=== PATIENT | male | born 1955 | race Caucasian/White ===

== ENCOUNTER → 2018-11-28 | Outpatient (CLI) | payer BC ==
[~2018-11-28] MED LIST: AMLO10TA5 PO; ASPI81TA85 PO; COQ-100C5 PO; LOSA100T50 PO; MECL-86 PO; METO50TA7 PO; MM S100C PO; MULT1TAB8 PO; PANT40TA3 PO
--- NOTE | 2018-11-30 08:31 | RADONC ---
RADIATION ONCOLOGY CONSULTATION NOTE DATE: 11/28/2018 CHART NUMBER: [id number] DIAGNOSIS: Spindle cell sarcoma. STAGE: IIIB, T2,N0, M0, grade 3. ECOG PERFORMANCE STATUS: 0 CONSULTATION NOTE: Mr. 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 He is now presenting to us having already been seen by radiation oncology at [facility] for further discussion of possible postoperative radiation therapy. HISTORY OF PRESENT ILLNESS: The patient was in his usual state of health until July of this year when and he began having some neck and upper back pain. He was seen by his primary care physician, and a CT scan was done which is reported to show a posterior periscapular mass. At this time, I do not have actual images of any of his MRI, CTs, or other studies. We are attempting to get them. Initially, it was thought that this patient had a hematoma, and he was seen by Dr. Lamas on 09/13/2018. An evacuation was undertaken, and pathology was initially read as having a high-grade lesion. It was reviewed that [facility] and thought at that institution to be an intermediate grade lesion. The patient was subsequently referred to Dr. Saleh, where MRIs and CT scans, as well as bone scans were undertaken. The CT scan of the abdomen and pelvis done 11/20/2018 showed no evidence of metastatic disease in the abdomen or pelvis. The bone scan done 10/18/2018 showed no evidence of osteoblastic metastatic disease. An MRI of the thoracic spine done 11/20/2016 did show a 9.5 cm x 5.7 cm x 8.3 cm mass. That was slightly decreased from the previous MRI, which showed an 11 cm x 8 cm x 10 cm mass. The patient was seen by radiation oncology who discussed the NCCN guidelines as well as the role of radiation either intraoperative with brachytherapy versus postoperative versus preoperative. The patient reports to me that he is scheduled to see Dr. Mike Saleh next Sunday in order to schedule surgical excision and that it has been discussed with him that plans would be for either brachytherapy, postoperative radiation therapy, or a combination thereof. PAST MEDICAL HISTORY: The patient's past medical history is positive for hypertension, cardiac problems, and cataracts. ALLERGIES: The patient is ALLERGIC to TYLENOL. SOCIAL HISTORY: The patient quit smoking in the year 1999. He had smoked one pack of cigarettes per day for 30 years. He drinks alcohol socially. FAMILY HISTORY: The patient's family history is positive for a brother with some type of cancer and a sister with colon cancer. REVIEW OF SYSTEMS: The patient's review of systems is positive for some hearing loss, shortness of breath, and some decreased energy. He also has occasional headaches. His review of systems is otherwise noncontributory. He denies nausea, vomiting, fevers, chills, night sweats, diplopia, headaches, anxiety or depression, anorexia, weight loss, visual disturbances, chest pain, urinary or bowel difficulties, bone pain, or neurological problems. PHYSICAL EXAMINATION: The patient is a well-developed, well-nourished white male in no acute distress. HEENT: Exam is normocephalic, atraumatic. Extraocular movements are intact. There is no palpable cervical, supraclavicular, infraclavicular, axillary, or inguinal lymphadenopathy present. His lungs are clear to auscultation and percussion. There is a large mass present over his upper back consistent with his history. It measures approximately 19 cm across. It is nontender but appears to be fixed. His heart has regular rate and rhythm. His abdomen is benign with no splenomegaly. Remainder of his physical exam is within normal limits. ASSESSMENT: Mr. Elkins is presenting to us today with what appears to be either an intermediate grade to high-grade spindle cell sarcoma which is involving his back. He is scheduled to see his surgeon, Dr. Saleh, next Sunday to schedule surgery and is presenting to us to once again discuss the possibilities of possible postoperative radiation therapy. I am attempting to obtain copies of his actual films for further evaluation. I have scheduled the patient see me again in 3 weeks for further followup. That would be [address] Saleh's appointment. I let the patient know that radiation would not begin for several weeks following surgery and that if he is just having surgery at that time to let us know and we could push back that appointment. There will be a necessary healing period. In addition, if the patient is receiving brachytherapy, further adjustments or recommendations will be made. We will also obtain the pathology results and operative notes as well as other information, once surgical resection has been completed. Thank you for allowing us to participate in the care of this very pleasant gentleman. I Look forward to working with you closely in his care. As always, with the warmest regards, John Gonzalez
== END ==
LOC: M ONCR 12:58
PROVIDERS: ATTEND Radiology Radiation Oncology
DX: C49.5 Malignant neoplasm of connective and soft tissue of pelvis (principal)

== ENCOUNTER → 2019-07-01 | Outpatient (CLI) | payer BC ==
[~2019-07-01] MED LIST changes: +DILA2TAB6 PO; +IBUP80TA PO; +LACT10SO29 PO; +VOTR200T2 PO
--- NOTE | 2019-07-03 10:31 | RADONC ---
RADIATION ONCOLOGY CONSULTATION NOTE DATE: 07/01/2019 CHART NUMBER: [id number] DIAGNOSIS: Myxofibrosarcoma. STAGE: IIIB, T2, N0, M0, grade 3, now multiple recurrences. ECOG PERFORMANCE STATUS: 1. CONSULTATION NOTE: Mr. 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 Since that time the patient has been seen by Dr. Alexis Saleh in [place] and has undergone multiple resections of his tumor. His most recent recurrence has been growing and a recent MRI done on June 02, 2019 reveals a 15 cm x 4 cm x 15 cm right posterior chest wall soft tissue mass compatible with his recurrent myxofibrosarcoma. There is a significant surgical defect. The tumor extends basically from the T2 through the T8 vertebral levels. The patient is now being referred to me for discussion of palliative radiation therapy as a therapeutic option. PAST MEDICAL HISTORY: The patient's past medical history is positive for hypertension, cardiac problems and cataracts. ALLERGIES: The patient is allergic to TYLENOL. SOCIAL HISTORY: The patient quit smoking in the year 1999. He had smoked one pack of cigarettes a day for 30 years. He drinks alcohol socially. FAMILY HISTORY: The patient's family history is positive for brother with some type of cancer and a sister with colon cancer. REVIEW OF SYSTEMS: The patient's review of systems is positive for back pain as well as some pain and discomfort running down his right arm. He also notes numbness in some of his fingers in the right arm. His review of systems is also positive for generalized weakness, decreased energy, some hearing loss, shortness of breath and physical limitations. He denies nausea, vomiting, fevers, chills, night sweats, diplopia, headaches, chest pain, bowel difficulties, urine problems. PHYSICAL EXAMINATION: The patient is a somewhat obese white male in no acute distress. HEENT: Exam is normocephalic, atraumatic. Extraocular movements are intact. There is no palpable cervical, supraclavicular, infraclavicular or axillary lymphadenopathy present. Examination of the patient's back reveals a huge surgical defect with necrotic tumor at the base. Photographs have been taken. The area of necrotic tumor measures approximately 15 cm consistent with his MRI. Overall is lungs are clear to auscultation and percussion. His heart has regular rate and rhythm. His abdomen is benign with no splenomegaly, masses or tenderness. ASSESSMENT: I had a very lengthy discussion with this patient. I made clear to him that this is not a curative treatment. Indeed the likelihood of a significant response with the minimal. The best we could hope is slowing down progression of this disease. In light of the fact that the patient is no longer a candidate for any further surgery and indeed refuses surgery then that I am willing to offer him radiation as his only option at this point. Once again I have made clear that the likelihood of getting rid of his massive disease with radiation alone is basically nonexistent. We are also a limited in the amount of radiation we can give to the structures underneath this disease. Indeed the disease appears to cross midline and therefore his spinal column is not far away. I discussed with the patient in detail the potential benefits as well as possible acute and chronic sequelae and risks of radiation. We discussed the logistics of treatment planning, simulation and subsequent fractionated daily radiation treatments. The patient is scheduled see the medical oncologist, Dr. Pavel Kaplan following my consultation. I do not believe systemic therapy will offer him very much but is a possibility following radiation. I will of course defer to the expertise of expertise and wisdom of his medical oncologist, Dr. Kaplan. I am scheduling the patient for the next available simulation slot and radiation treatments will begin subsequently. Thank you for allowing us to participate in the care of this very pleasant gentleman. If I could be of any further assistance or provide you any information, please free to contact me at anytime. cc: MD Real Kingston MD Timothy Damron, MD Imad Nsouli, MD
== END ==
LOC: M ONCR 08:15
PROVIDERS: ATTEND Radiology Radiation Oncology
DX: C49.6 Malignant neoplasm of connective and soft tissue of trunk, unspecified (principal)

== ENCOUNTER → 2019-07-29 | Outpatient (RCR) | payer BC ==
--- NOTE | 2019-07-14 13:12 | RADONC ---
RADIATION ONCOLOGY SIMULATION NOTE DATE: 07/11/2019 CHART NUMBER: [id number] SIMULATION NOTE: Mr. Elkins was taken to the CT scan for CT simulation of his back field. CT was accomplished without difficulty or discomfort. Radiation treatment planning is underway and radiation treatments will begin subsequently. An immobilization device was created and was created without difficulty or discomfort. It will be used throughout the course of treatment. I was physically present throughout the course of CT simulation. I had a lengthy discussion with the patient and his . I made clear to them that the chances of this doing any good are minimal, if any. This mass is huge, and I reviewed the x-rays with them. He has indeed had five surgeries already, and I think any thought of further surgery at this point is unreasonable. I said I am willing to treat this, and I have discussed this case with his insurance company who has allowed only 15 treatments. We therefore will be using large fractions. I discussed this with the patient as well and this may result in increasing sunburn effect. Indeed, however much of the skin is involved with tumor as is. Since he is having discomfort, I do not think this should add too much to his overall pain. We will continue to follow him closely and radiation treatment planning is underway.
--- NOTE | 2019-07-28 14:01 | RADONC ---
RADIATION ONCOLOGY PROGRESS NOTE DATE OF SERVICE: 07/28/2019 Mr. Elkins is thus far at a dose of 600 cGy to his back and was last treated on Sunday. The patient called today saying he did not feel well following his chemotherapy. He is not up to coming in today. I did have a brief discussion with this patient on the possibility of hospice. Clearly, the chances of any success are minimal. I think it reasonable to however complete the radiation, which will resume tomorrow.
[~2019-07-29] MED LIST changes: +MORP30TASA PO; +ONDA8TAB8 PO; +PROC5TA PO
== END ==
LOC: M ONCR 07-11 09:52
PROVIDERS: ATTEND Radiology Radiation Oncology
DX: C49.6 Malignant neoplasm of connective and soft tissue of trunk, unspecified (principal)

== ENCOUNTER 2019-08-07 11:29 | Outpatient (RCR) | payer BC ==
--- NOTE | 2019-08-05 08:16 | RADONC ---
RADIATION ONCOLOGY PROGRESS NOTE DATE: 08/04/2019 CHART NUMBER: [id number] PROGRESS NOTE: Mr. Elkins is presently at a dose of 2100 cGy to his back and is tolerating his radiation without difficulty. He continues to have multiple issues with nausea, decreased appetite and diarrhea as well as alternating with constipation since his chemotherapy. I have reassured him that we are only treating the skin of his back and that we should have no effect whatsoever on his GI tract at this point. PHYSICAL EXAMINATION: Physical examination was deferred at this point secondary to COVID-19. ASSESSMENT: Mr. Elkins wishes to continue with his radiation at this point. He will consider whether or not to do any further chemo or just enter onto hospice following this.
[2019-08-07] MEDS ORDERED: VOTR200T2 PO (14:46)
--- NOTE | 2019-08-07 15:07 | RADONC ---
RADIATION ONCOLOGY TREATMENT SUMMARY DATE: 08/07/2019 CHART NUMBER: [id number] DIAGNOSIS: Myxofibrosarcoma. STAGE: III B, T2, N0, M0, grade 3, with multiple recurrences. ECOG PERFORMANCE STATUS: 1 TREATMENT SUMMARY: Mr. 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 We treated the patient to his back mass for a dose of 3000 cGy delivered in 10 fractions of 300 cGy each over 14 elapsed days from 07/24/2019 through 08/07/2019. The patient's back was treated on the linear accelerator utilizing a 15 MV photon beam via 3-D conformal technique via tangential earl with bolus applied to the back. We had discussed with the patient treating for an additional coned down for an additional five fractions. Unfortunately, the patient reported that his tumor apparently kept growing throughout the course of treatment. The patient has now completed the initial portion of his treatment. I asked him to think whether or not he wishes to get additional radiation since it does not appear to be working. The patient has my cell phone number and our office number. We have the treatment plan in our computer and can initiate further treatments. In light of the COVID-19 virus however, if the treatments are not doing any good I gave the patient the option of stopping at this point rather than leaving the house and possibly exposing himself to the virus. Once again, the patient will contact me within the next couple of days on whether or not he wishes to continue radiation for an additional 1500 cGy. In the meantime, I have set him up for a followup in our office in 1 months' time. cc: MD Alexis Kingston MD Jonathan Harrison, MD Imad Nsouli, MD
[2019-08-12] MEDS ORDERED: DILA2TAB6 PO ×3 (12:23→14:12)
[2019-08-18] MEDS ORDERED: MORP30TASA PO (15:28)
[2019-08-18] MEDS ORDERED: MOVA1TAB2 PO (15:32)
[2019-08-18] MEDS ORDERED: LIDO2JELLY TOP (15:36)
[2019-08-25] MEDS ORDERED: DILA2TAB6 PO (13:57)
== END 2019-08-28 ==
LOC: M ONCR 11:29
PROVIDERS: ATTEND Radiology Radiation Oncology
DX: C49.6 Malignant neoplasm of connective and soft tissue of trunk, unspecified (principal)

== ENCOUNTER → 2019-08-18 | Outpatient (CLI) | payer BC ==
[~2019-08-18] MED LIST changes: +LIDO2JELLY TOP; +MOVA1TAB2 PO
[2019-08-18 15:10] LABS: BASO # 0.1 10^3/uL (0.0-0.2); BASO % 0.8 % (0.0-1.0); EOS # 0.7 10^3/uL (0.0-0.5); EOS % 9.4 % (0.0-3.0); HEMATOCRIT 31.8 % (42.0-52.0); LYMPH # 0.7 10^3/uL (1.5-5.0); LYMPH % 10.1 % (24.0-44.0); MEAN CORPUSCULAR HEMOGLOBIN 25.4 pg (27.0-33.0); MEAN CORPUSCULAR HGB CONC 31.4 g/dl (32.0-36.5); MEAN CORPUSCULAR VOLUME 80.9 fl (80.0-96.0); MONO # 1.3 10^3/uL (0.0-0.8); MONO % 17.2 % (0.0-5.0); NEUTROPHILS # 4.6 10^3/uL (1.5-8.5); NEUTROPHILS % 62.2 % (36.0-66.0); PLATELET COUNT, AUTOMATED 343 10^3/uL (150-450); RED BLOOD COUNT 3.93 10^6/uL (4.30-6.10); WHITE BLOOD COUNT 7.3 10^3/uL (4.0-10.0)
[2019-08-18 15:39] LABS: ALBUMIN 2.9 GM/DL (3.2-5.2); ALT/SGPT 71 U/L (12-78); BILIRUBIN,TOTAL 0.6 MG/DL (0.2-1.0); BLOOD UREA NITROGEN 11 MG/DL (7-18); CARBON DIOXIDE LEVEL 29 MEQ/L (21-32); CHLORIDE LEVEL 99 MEQ/L (98-107); CREATININE FOR GFR 0.89 MG/DL (0.70-1.30); GLOMERULAR FILTRATION RATE > 60.0 (>49); GLUCOSE, FASTING 125 MG/DL (70-100); POTASSIUM SERUM 4.4 MEQ/L (3.5-5.1); SODIUM LEVEL 132 MEQ/L (136-145); TOTAL PROTEIN 7.2 GM/DL (6.4-8.2)
== END ==
LOC: M LAB 14:35
PROVIDERS: ATTEND Internal Medicine Hematology
DX: C49.9 Malignant neoplasm of connective and soft tissue, unspecified (principal)